=== PATIENT | female | born 1970 | race Caucasian/White ===

== ENCOUNTER → 2020-08-10 14:33 | Outpatient (CLI) | payer BC, SELFPAY ==
--- NOTE | ~2020-08-10 | CT_ITS ---
EXAMINATION: CT abdomen pelvis wo con DATE: 08/10/2020 14:56 INDICATION: Incisional hernia without obstruction or gangrene. TECHNIQUE: Computed tomography (CT) of the abdomen and pelvis was performed without intravenous contr ast. Automated exposure control and iterative reconstruction technique were employed. The dose-length product was 304.28 mGy-cm. COMPARISON: None. FINDINGS: The visualized portions of the lung bases are clear without pneumonia or pleural effusion. The heart size is normal. No pericardial effusion. There are surgical changes in the stomach. There i s a small sliding hiatal hernia. There are cysts in the liver measuring up to 1.7 cm. The gallbladder , spleen, pancreas, adrenal glands, and kidneys are normal. There are no dilated loops of bowel. Ther e is a large volume of stool in colon. The appendix is normal. There are no pathologically enlarged l ymph nodes. There is no free intraperitoneal fluid. There is a small umbilical hernia containing fat. There is severe lower lumbar spondylosis. IMPRESSION: 1. Small sliding hiatal hernia. 2. Small umbilical hernia containing fat. Reviewed, dictated and finalized at location A.
== END ==
PROVIDERS: PCP Internal Medicine; Visit Provider Surgery
DX: K43.2 Incisional hernia without obstruction or gangrene (principal); K44.9 Diaphragmatic hernia without obstruction or gangrene; K42.9 Umbilical hernia without obstruction or gangrene
CPT/HCPCS: 74176

== ENCOUNTER → 2020-09-05 01:52 | Outpatient (CLI) | payer BC, SELFPAY ==
[2020-09-06 14:52] LABS: SARS-CoV-2 RNA PCR Negative
== END ==
PROVIDERS: PCP Internal Medicine; Visit Provider Surgery
DX: Z01.812 Encounter for preprocedural laboratory examination (principal); Z20.822 Contact with and (suspected) exposure to COVID-19
CPT/HCPCS: C9803; U0003; U0005

== ENCOUNTER 2020-09-09 00:42 | Day surgery (SDC) | payer BC, SELFPAY ==
[2020-08-31 16:38] VITALS: BMI 20.9
--- NOTE | 2020-09-09 07:05 | WPDHPUPDATE1 ---
History and Physical Update Update Date/Time: 09/09/20 07:05 History and Physical has been reviewed, including an updated exam of the patient. There are NO changes in the patient's condition. Risks, benefits, and alternatives have been discussed and questions answered. Patient agrees to proceed with procedure.
[2020-09-09] MEDS: LACTATED RINGERS 1,000 ML 30 ML IV CONT ×2 (08:17→10:33)
[2020-09-09] MEDS: ACETAMINOPHEN 500 MG TABLET 1000 MG PO (08:17)
[2020-09-09] MEDS: KETOROLAC 15 MG/ML VIAL (*BKC) IV PUSH (08:17)
[2020-09-09 08:24] VITALS: BMI 20.9
[2020-09-09 08:25] VITALS: BP 113/80; PULSE 70; RESP 16; TEMP 36.7; O2SAT 100
--- NOTE | 2020-09-09 08:32 | SUR.PREOP ---
PT STATES HE HAS NOT HAD A MENSTRUAL CYCLE SINCE 2012
[2020-09-09] MEDS: ceFAZolin 2 GM/D5W 50 ML 2 GM/50 ML BAG IVPB (09:39)
[2020-09-09] MEDS: BUPIVACAINE HCL 0.5% PF 30 ML VIAL 10 ML INFILTRATE (09:57)
[2020-09-09 10:33] VITALS: BP 86/51; PULSE 61; RESP 15; O2SAT 99
--- NOTE | 2020-09-09 10:45 | P.OP_ITS ---
Procedure Note - Detailed Date of procedure: 09/09/20 Pre-op diagnosis: umbilical hernia Umbilical hernia Post-op diagnosis: same Procedure performed: Umbilical hernia repair with 4.4 cm Parietex underlay mesh Description of procedure: Patient was taken to the operating room and IV sedation was administered. Prep and drape was carried out. The proposed incision along the lower margin of the umbilicus was marked on the skin. Local anesthetic was infiltrated into the skin and the deeper subcutaneous tissues. Incision was made and dissection was carried down through the skin and to the hernia sac. The sac was then dissected free from the umbilical skin and the surrounding subcutaneous tissues. It was dissected down to its neck. Additional local anesthetic was infiltrated into the neck and the fascia s urrounding the neck of the hernia sac. The sac was then amputated at its neck. There was an Ethibond suture in the fascia from 1 of her previous repairs which was removed prior to removing the hernia sac. The subcutaneous was undermined around the hernia defect. Additional local was infiltrated around the fascia. I placed a finger inside the hernia defect and checked for any abdominal wall ad hesions in the area. None were found. I could not feel any of her previous mesh either. No other hernias were noted. A 4.6 cm Parietex three affiliated was chosen. It was folded and placed in the defect. Once it symmetrically covered the defect, I placed cranial and caudal transfascial sutures of 0 Ethibond. These sutures were placed in such a fashion that, when tied, they would advance the edges of the hernia defect towards 1 another. These sutures were tied and had the desired effect. I then closed the hernia defect with [id number] mattress sutures of 0 Ethibond. The repair looked quite satisfactory. I then infiltrated additional local all around the areas of the repair. The umbilical skin was tacked to the fascia with 3 0 Vicryl suture. The subcutaneous was closed with 3 0 Vicryl. Subcuticular interrupted 4 O Vicryl skin stitches were placed. The skin was then closed with running 4 0 Monocryl subcuticular suture. Wound was dressed with Exofin surgical adhesive. The patient was awakened and taken to recovery in good condition. Counts were correct x2. Implants: 4.6 cm Parietex hernia mesh Anesthesia: MAC and local (0.5% Marcaine with Exparel) Surgeon: Milan Han MD Elevator Operator Freight: Radha COLON Estimated blood loss (mL): 5 Drains: No Packing: No Pathology: none sent Complications: None Condition: stable Disposition: same day Findings: 12 millimeter hernia defect
[2020-09-09] MEDS: SCOPOLAMINE 1.5 MG PATCH TRANSDERM (10:46)
[2020-09-09 11:00] VITALS: BP 100/60; PULSE 59; RESP 16; O2SAT 100
[2020-09-09 11:25] VITALS: BP 93/63; PULSE 57; RESP 16
[2020-09-09 11:40] VITALS: BP 103/63; PULSE 55; RESP 16
== END 2020-09-09 11:52 | disposition home or self-care (01) ==
PROVIDERS: PCP Internal Medicine; Visit Provider Surgery
PROC: (CPT 49585; principal; 2020-09-09 09:30)
DX: K42.9 Umbilical hernia without obstruction or gangrene (principal)
CPT/HCPCS: 49585; A9270; C1781; C9290; J0690; J1885; J2250; J2704; J3010; J7120

== ENCOUNTER 2021-04-01 15:31 | Outpatient (CLI) | payer OTHER, SELFPAY ==
[2021-04-01 16:06] LABS: Hemoglobin 12.3 g/dL (12.0-15.0); Mean Corpuscular HGB Conc 32.4 g/dl (32-36); Mean Corpuscular Hemoglobin 31.7 pg (26-34); Mean Corpuscular Volume 97.9 fl (80-100); Mean Platelet Volume 11.2 fl (7.4-10.4); Platelet Count Result 210 k/mm3 (150-375); Red Blood Count 3.88 M/mm3 (4.2-5.4); Red Cell Distribution Width 13.2 % (11.5-14.5); White Blood Count 4.4 K/mm3 (4.5-10.0)
[2021-04-01 16:16] LABS: Albumin Level 4.7 g/dL (3.5-5.1); Anion Gap 9 mmol/L (8-16); Blood Urea Nitrogen 24 mg/dL (7-17); Calcium 9.2 mg/dL (8.4-10.2); Carbon Dioxide 28 mmol/L (22-30); Chloride 96 mmol/L (98-107); Estimated Glomerular Filt Rate > 60; Glucose 90 mg/dL (65-110); Sodium 133 mmol/L (137-145)
[2021-04-01 16:23] LABS: Prealbumin 21.9 mg/dL (17.6-36.0)
[2021-04-01 17:09] LABS: Iron 108 ug/dL (37-170)
== END 2021-04-01 15:32 | disposition home or self-care (01) ==
LOC: ANHLAB 15:33
PROVIDERS: PCP Internal Medicine; Visit Provider Surgery Plastic and Reconstructive Surgery
DX: Z01.818 Encounter for other preprocedural examination (principal)
CPT/HCPCS: 36415; 80048; 82040; 83540; 84134; 85027

== ENCOUNTER 2021-04-16 00:10 | Day surgery (SDC) | payer OTHER, SELFPAY ==
[2021-04-09 11:15] VITALS: BMI 21.2
--- NOTE | 2021-04-09 11:40 | PC.NURSE ---
Report to the Outpatient Waiting Room, entrance under the green pavilion located off [facility], at time 0600 on date 04/16/21. OR Time: 0730. - You and your visitor will be asked a series of questions to screen for COVID 19 for your protection. - A mask is required within the hospital. - Only one visitor is allowed at this time. Patient visitors will be guided where to wait when not with patient. Preoperative COVID Testing Requirements: No COVID Test needed if: (proof is required; if not received patient will have Rapid Test prior to entry) - Patient has received COVID Vaccine at least 14 days prior to procedure date or - Patient has positive COVID test result within last 90 days of surgery date. COVID Test needed if above criteria is not met If not COVID vaccinated a COVID test must be conducted within 72 hours of surgery and patient is asked to isolate self from time of testing until procedure. You will go to the [facility] for your COVID testing. The [facility] is located at the corner of [address] [facility]. You will only be called if COVID results are positive and your surgeon may reschedule your elective surgery date. Patients may have clear liquids (water, carbonated beverages, clear teas, apple juice) until 3 hours prior to surgery with a maximum of 20 ounces. - No food from midnight until time of surgery - Infants may have breast milk until 4 hours before surgery, infant formula 6 hours prior to surgery. - Children will be allowed to drink immediately following surgery. If applicable, please bring a bottle or sippy cup to assist with drinking. Juice, water, soda, and popsicles are readily available. For infants on formula, please bring formula the day of surgery. Pacifiers are allowed. Take the following medications with a SIP of water the morning of surgery: NONE Medications to discontinue per physician: N/A Date to take last dose: N/A Please no make-up, nail english, hairspray, perfume, deodorant, or body powder the day of surgery. No jewelry (including any body piercings) or valuables the day of surgery, leave them at home. Please take a shower or bath the night before, or the morning of, surgery with an antibacterial soap. Wear comfortable, loose fitting clothing. Children are encouraged to wear pajamas. - Jewelry must be removed prior to entering the operating room. Rings and piercings that are not removed may be cut off. - The hospital will not accept responsibility for valuables. - Please leave all valuables, including medications, at home the day of surgery. If you are going home after surgery, a licensed taxi driver supervisor must drive you home. - NO public transportation without another adult. - We recommend that an adult stay with you for 24 hours following discharge. - We also recommend that you do not drive, make important decision, drink alcoholic beverages, or take any drugs that were not prescribed by your health care provider for at least 24 hours after your discharge time. For Pediatric surgeries, we recommend two adults accompany the child home (only one inside the building at this time). Follow any additional instructions given to you from your surgeon. Telephone instructions given to TRAE VÁSQUEZ and asked if any additional questions and then verbalized understanding. Patient advised to call surgeon office or pre surgery nurse liaison [phone] if any additional questions.
[2021-04-16] VITALS (10 sets, daily range): BP systolic 93–135; BP diastolic 60–81; PULSE 51–69; RESP 12–18; TEMP 36.2–36.6; O2SAT 92–100
[2021-04-16] MEDS: LACTATED RINGERS 1,000 ML 30 ML IV CONT ×2 (06:35→09:29)
--- NOTE | 2021-04-16 06:37 | WPDANESEPPF ---
Anes - Initial Pre Proc Eval Procedure: Operation Date: 04/16/21 07:30 Proposed Procedures p Bilateral Medial Thigh Lift - Parveen Brizuela MD Date/Time: 04/16/21 06:37 Surgeon: Parveen Brizuela MD Pre Op Diagnosis: skin laxity Patient Data Age: 50 Gender: F Height: 1.57 m Weight: 52.62 kg Allergies Allergy/AdvReac Type Severity Reaction Status Date / Time No Known Allergies Allergy Mild Verified 04/09/21 11:13 Home Medications Medication Instructions Recorded Confirmed Type docusate sodium 100 mg capsule 100 mg PO DAILY #14 cap 04/01/21 04/09/21 Rx ondansetron HCl 4 mg tablet 4 mg PO Q8H #21 tablet 04/01/21 04/09/21 Rx oxycodone-acetaminophen 5 mg-325 1 tablet PO Q6H PRN #30 tablet 04/05/21 04/09/21 Rx mg tablet Laboratory Tests 04/16/21 06:06 Cotinine Pending Patient hx anesthesia problems: none Family hx anesthesia problems: none Results Review: All pre-operative results and documents have been reviewed as part of the pre-operative evaluation. [facility] Surgical History Surgical History History of History of hernia repair History of removal of ovarian cyst left side History of weight loss surgery Social History Social History Smoking status: Never smoker Alcohol intake: never Substance use: never Substance use type: does not use Living arrangements: with family Gender identity (if verbalized by the patient): Female Sexual Orientation (if Verbalized by the Patient): Straight or Heterosexual Spiritual care concerns: No Anes - Eval Final PreProcedure Day of Procedure 04/16/21 06:37 Patient weight: normal Heart: regular rate and rhythm Lungs: clear to auscultation Airway: Mallampati scale class II Neurological: alert and oriented Last oral intake: >/= 8 hours ASA classification: I Emergent: no Anesthetic plan: proceed Anesthesia type and monitoring: general ETT and standard monitoring Results Review: All pre-operative results and documents have been reviewed as part of the pre-operative evaluation. Informed Consent: The patient's anesthetic plan and its attendant risks and benefits were discussed with the patient/family/POA. Questions were solicited and answers provided to the satisfaction of the patient/family/POA.
[2021-04-16 06:39] LABS: Urine Cotinine NEGATIVE
--- NOTE | 2021-04-16 06:58 | WPDHPUPDATE1 ---
History and Physical Update Update Date/Time: 04/16/21 06:58 History and Physical has been reviewed, including an updated exam of the patient. There are NO changes in the patient's condition. Risks, benefits, and alternatives have been discussed and questions answered. Patient agrees to proceed with procedure.
[2021-04-16] MEDS: SCOPOLAMINE 1.5 MG PATCH TRANSDERM (07:12)
[2021-04-16] MEDS: LACTATED RINGERS IRRIG 1,000 ML, LIDOCAINE HCL 1% LOCAL INJ 50 ML, EPINEPHrine HCL INJ ... INFILTRATE (07:22)
[2021-04-16] MEDS: TRANEXAMIC ACID 1,000MG/ISO100 1,000 MG/100 ML BAG 200 MG IVPB (07:22)
[2021-04-16] MEDS: ceFAZolin 2 GM/D5W 50 ML 2 GM/50 ML BAG IVPB (07:30)
--- NOTE | 2021-04-16 07:30 | W.PM.PROC2 ---
Procedure Note - Detailed Date of Procedure 04/16/21 Pre-op Diagnosis skin laxity Post-op Diagnosis same Procedure Performed Medial thigh lift Surgeon Parveen Brizuela MD Anesthesia general Description of Procedure Risks, benefits, alternatives were discussed with her and her family preoperatively. I want her to be very realistic about the risks involved as well as expectations. Made sure answered all of her questions to her satisfaction. Consent obtained. Patient marked in the preoperative holding area with her verification. She was taken to the operating room placed supine on operating room table. Anesthesia provided by anesthesiology and prepped and draped in a standard sterile fashion. Surgical time-out was taken. I verified my markings. Stab incisions were made and I tumesced with a tumescent solution. Once adequate time for hemostasis a 4 mm basket cannula was used to complete suction lipectomy of the medial thigh for the planned resection. I completely deep fat had the area to be resected. Using a strip avulsion technique in a cut as you go fashion from proximal to distal I removed the intervening tissue. Closed with 0 Stratafix followed by 3-0 Stratafix in a running subcuticular 4-0 Monocryl and tissue glue followed by steri strips and JOSE wrap. She was woken and taken to the PACU without difficulty. All instrument sponge counts were correct at the end of the case. Estimated Blood Loss 30 Drains No Packing No Pathology none sent Complications No immediate complications Condition stable Disposition PACU
[2021-04-16] MEDS: fentaNYL CITRATE INJ (*CRX) 100 MCG/2 ML VIAL 25 MCG IV PUSH (10:18)
[2021-04-16] MEDS: oxyCODONE HCL (*CRX) 5 MG TAB IR PO (10:58)
[2021-04-16] MEDS: ONDANSETRON INJ 4 MG/2 ML VIAL IV PUSH (10:58)
[2021-04-22 09:23] LABS: Vitamin B1 14 nmol/L (8-30)
== END 2021-04-16 12:07 | disposition home or self-care (01) ==
PROVIDERS: PCP Internal Medicine; Visit Provider Surgery Plastic and Reconstructive Surgery
PROC: (CPT 15832; principal; 2021-04-16 07:30)
DX: Z41.1 Encounter for cosmetic surgery (principal); L57.4 Cutis laxa senilis; Z98.84 Bariatric surgery status
CPT/HCPCS: 15833; 15879; 80307; 84425; A9270; J0171; J0690; J2250; J2270; J2405; J2704; J3010; J7120

== ENCOUNTER → 2023-09-20 11:04 | Outpatient (CLI) | payer BC, SELFPAY ==
--- NOTE | ~2023-09-20 | XR_ITS ---
XR chest 2V DATE: 09/20/2023 11:23 INDICATION: Chronic cough for 2 weeks. Left anterior chest pain. TECHNIQUE: 2 views COMPARISON: None FINDINGS: Normal heart size. No hilar or mediastinal enlargement. No pulmonary infiltrate or consolid ation, pleural effusion or pulmonary vascular congestion or pneumothorax. Mild thoracolumbar levoscoliosis. IMPRESSION: No active cardiopulmonary disease Reviewed, dictated and finalized at location B.
== END ==
LOC: EXPBRAD 11:09
DX: R05.3 Chronic cough (principal); R07.89 Other chest pain
CPT/HCPCS: 71046

== ENCOUNTER 2024-02-16 17:45 | Emergency (ER) | payer BC, SELFPAY ==
[2024-02-16 17:50] VITALS: BP 131/89; PULSE 80; RESP 16; TEMP 36.6; O2SAT 100
--- NOTE | 2024-02-16 18:08 | ED.URI ---
HPI - URI/Sore Throat General Chief Complaint: Upper Respiratory Infection Stated Complaint: Congestion Time Seen by Provider: 02/16/24 18:08 Source: patient Mode of arrival: ambulatory Limitations: no limitations History of Present Illness HPI Narrative: 53-year-old female presented for complaint of nasal congestion and sinus pressure over the past month. Endorses thick yellow nasal discharge. Cough is worse when lying down. She has used Zyrtec D but notices causing a dry mouth. She denies shortness of breath, wheezing, nausea, vomiting, diarrhea, fevers or chills. Related Data Allergies Allergy/AdvReac Type Severity Reaction Status Date / Time No Known Allergies Allergy Mild Verified 02/16/24 18:05 Review of Systems Review of Systems: CONSTITUTIONAL: Denies body aches, fever, chills, or sweats. EYES: Denies visual changes, redness, or discharge. ENT: reports rhinorrhea, congestion, denies sore throat, or otalgia. CARDIOVASCULAR: Denies chest pain, palpitations, or edema. RESPIRATORY: Denies dyspnea. NEUROLOGIC: Denies headache All systems reviewed & are unremarkable except as noted in HPI and below PMFSH Surgical History Surgical History History of History of hernia repair History of removal of ovarian cyst left side History of weight loss surgery Social History Social History Smoking status: Never smoker Alcohol intake: never Substance use: never Substance use type: does not use Living arrangements: with family Gender identity (if verbalized by the patient): Female Sexual Orientation (if Verbalized by the Patient): Straight or Heterosexual Spiritual care concerns: No Comments At time of signature, I have reviewed and agree with nursing past medical, surgical, social and family history unless otherwise noted. Please see nursing chart for further information. There is no relevant family history pertinent to the presenting complaint Exam Narrative: GENERAL: Well-appearing, well-nourished, and in no acute distress. HEAD: Normocephalic, atraumatic. EYES: EOMI. No redness or drainage. Conjunctivae normal. ENT: Mucous membranes pink and moist. No rhinorrhea. TMs normal bilaterally. Throat normal. Uvula midline. NECK: Normal AROM. Supple. No lymphadenopathy. CHEST: No respiratory distress. Clear to auscultation. HEART: Regular rate and rhythm. No murmur appreciated. Normal peripheral pulses. ABDOMEN: Soft, nontender, nondistended, normal active bowel sounds. MUSCULOSKELETAL: No bony tenderness. EXTREMITIES: Normal range of motion. No edema. SKIN: Warm, dry, no rash. Capillary refill normal. Normal skin turgor. NEURO: No focal deficits. Alert and oriented x3. Gait steady. PSYCH: Normal affect. No signs of depression or anxiety. Course Course Emergency Course: Patient is aware of diagnosis, understands and agrees to treatment plan. Anticipatory guidance given. Patient agrees to follow-up as directed and is aware of reasons to seek care at the emergency department. Portions of this record may have been created with voice recognition software Level of Care: Express Care Visit Vital Signs Vital signs: Vital Signs Temperature 97.9 F 02/16/24 17:50 Pulse Rate 80 02/16/24 17:50 Respiratory Rate 16 02/16/24 17:50 Blood Pressure 131/89 02/16/24 17:50 Pulse Oximetry 100 02/16/24 17:50 Oxygen Delivery Room Air 02/16/24 17:50 Temperature 97.9 F 02/16/24 17:50 Pulse Rate 80 02/16/24 17:50 Respiratory Rate 16 02/16/24 17:50 Blood Pressure 131/89 02/16/24 17:50 Pulse Oximetry 100 02/16/24 17:50 Oxygen Delivery Room Air 02/16/24 17:50 MDM - URI/Sore Throat MDM Narrative Medical decision making narrative: Discussed physical exam findings consistent with sinusitis. Advised supportive measures and signs/sym
== END 2024-02-16 18:24 | disposition home or self-care (01) ==
PROVIDERS: Emergency Provider Nurse Practitioner Family; PCP Internal Medicine
DX: J32.9 Chronic sinusitis, unspecified (principal)
CPT/HCPCS: 99213; G0463

== ENCOUNTER 2024-09-27 09:33 | Outpatient (CLI) | payer OTHER, SELFPAY ==
--- OUTSIDE RECORDS SUMMARY | 2024-09-27 09:44 | XMS_ITS | Clinical Summary ---
Author Organization [facility] Address [address] [place] [address] Care Team Providers Care Community Center Worker Name Role Phone Antoni Arenas MD Primary Care Provider [phone] Source Comments [facility] and Associated Physician Practices is amultiple site organization consisting of ambulatory clinics and hospital sitesin [place], [place], [place] and [place]. This disclosure is being madepursuant to the Care Everywhere program and may not contain all information available regarding this patient. Last updated 18.[facility] [employer] Allergies Active Allergy Reactions Criticality Noted Date Comments Adhesive Sensitivity 04/22/2011 Skin reddens/irritation Medications * Be aware that medications may not be up to date on this document. Alwaysverify current medications with the patient. multivitamin daily (THERAGRAN) tablet Take 1 Tab by mouth 2 times daily. Active Calcium Citrate-Vitamin D (CALCIUM CITRATE + D PO) Take 500 mg by mouth 2 times daily. Active Thiamine HCl 100 MG TABS Take 100 mg by mouth once daily. Active vitamin B-12 n (B-12) 500 MCG tablet Take 500 mcg by mouth every 2 days. Active vitamin D, cholecalciferol, 1000 UNIT tablet Take 1 Tab by mouth once daily. Active Spironolactone (ALDACTONE PO) Take by mouth. Active DOXYCYCLINE, ROSACEA, PO Take by mouth. Active Active Problems No known active problems Social History Tobacco Use Types Packs/Day Years Used Date Smoking Tobacco: Never Smokeless Tobacco: Never Alcohol Use Standard Drinks/Week Comments Yes 0 (1 standard drink = 0.6 oz pur e alcohol) social/rare Comments No Sex and Gender Information Value Date Recorded Sex Assigned at Not on file Legal Sex Female 12:17 PM COPY CLERK Gender Identity Not on file Sexual Orientation Not on file Last Filed Vital Signs Vital Sign Reading Time Taken Comments Blood Pressure 110/77 05/02/2014 9:35 AM COPY CLERK Pulse 84 05/02/2014 9:35 AM COPY CLERK Temperature 36.3 C (97.3 F) 11/08/2011 9:43 AM CDT Respiratory Rate 16 11/08/2011 9:43 AM CDT Oxygen Saturation 98% 05/02/2014 9:35 AM COPY CLERK Inhaled Oxygen Concentration - - Weight 67.1 kg (148 lb) 05/02/2014 9:35 AM COPY CLERK Height 157.5 cm (5' 2) 05/02/2014 9:35 AM COPY CLERK Body Mass Index 27.07 05/02/2014 9:35 AM COPY CLERK Plan of Treatment Health Maintenance Due Date Last Done Comments COLOGUARD (AGES 45-75) - COL ON CA SCREENING 1970 COLON MONITORING 1970 COLONOSCOPY - COLON CA SCREENING 1970 CT COLONOGRAPHY - COLON CA SCREENING 1970 Colorectal Cancer Screening 1970 FIT - COLON CA SCREENING 1970 FLEX SIG - COLON CA SCREENING 1970 LIPID TESTING 1970 MAMMOGRAM 1970 HIV SCREENING 1985 HEPATITIS C SCREENING 04/15/1988 DTAP/TDAP/TD VACCINES (1 - Tdap) 1989 HEPATITIS B VACCINE (1 of 3 - 19+ 3-dose series) 1989 PNEUMOCOCCAL VACCINE 50+ (1 of 1 - PCV) 2020 ZOSTER VACCINE (1 of 2) 2020 COVID-19 VACCINE ( - 2023-2 5 season) 2023 DEPRESSION SCREENING 05/01/2024 INFLUENZA VACCINE (Season Ended) 2024 HIB VACCINE Aged Out No longer eligi ble based on patient's age to complete this topic HPV VACCINE Aged Out No longer eligi ble based on patient's age to complete this topic MENINGOCOCCAL (Group B) VACC INE SHARED DECISION-MAKING Aged Out No longer eligibl e based on patient's age to complete this topic MENINGOCOCCAL GROUPS A/C/Y/W VACCINE Aged Out No longer eligible b ased on patient's age to complete this topic Insurance [facility] Advance Directives * FULL RESUSCITATION (Latest Code Status on File) Date Activated Date Inactivated Comments 05/11/2011 12:11 PM 05/13/2011 1:15 AM Care Teams Community Center Worker Relationship Specialty Start Date End Date Antoni Arenas MD [address] [place] [phone] PCP - General 01/28/11
--- OUTSIDE RECORDS SUMMARY | 2024-09-27 09:44 | XMS_ITS | Encounter Summary ---
Author Organization [facility] Health Address [address] [place] [address] Care Team Providers Care Giant Tire Repairer Name Role Phone Antoni Arenas MD Primary Care Provider [phone] Encounter Details Date Type Department Care Team (Late st Contact Info) Description 05/10/2011 [facility] Outpatient Visit EXTERNAL NON-[facility] DEPT Leonard Horne MD [address] [place], [place] [id number] Social History Tobacco Use Types Packs/Day Years Used Date Smoking Tobacco: Never Smokeless Tobacco: Never Alcohol Use Standard Drinks/Week Comments Yes 0 (1 standard drink = 0.6 oz pur e alcohol) social/rare Comments Unknown Sex and Gender Information Value Date Recorded Sex Assigned at Not on file Legal Sex Female 12:17 PM FARE COLLECTOR Gender Identity Not on file Sexual Orientation Not on file documented as of this encounter Plan of Treatment Not on file documented as of this encounter Visit Diagnoses Not on filedocumented in this encounter Care Teams Giant Tire Repairer Relationship Specialty Start Date End Date Antoni Arenas MD [address] [place] [phone] PCP - General 01/28/11 documented as of this encounter
--- OUTSIDE RECORDS SUMMARY | 2024-09-27 09:44 | XMS_ITS | Encounter Summary ---
Author Organization [facility] Health Address [address] [place] [address] Care Team Providers Care Pipe Changer Name Role Phone Antoni Arenas MD Primary Care Provider [phone] Encounter Details Date Type Department Care Team (Late st Contact Info) Description 05/06/2011 [facility] Outpatient Visit EXTERNAL NON-[facility] DEPT Leonard Horne MD [address] [place], [place] [id number] Social History Tobacco Use Types Packs/Day Years Used Date Smoking Tobacco: Never Smokeless Tobacco: Never Alcohol Use Standard Drinks/Week Comments Yes 0 (1 standard drink = 0.6 oz pur e alcohol) social/rare Comments Unknown Sex and Gender Information Value Date Recorded Sex Assigned at Not on file Legal Sex Female 12:17 PM DIRECTOR OF MARKETING AND PROMOTIONS Gender Identity Not on file Sexual Orientation Not on file documented as of this encounter Plan of Treatment Not on file documented as of this encounter Visit Diagnoses Not on filedocumented in this encounter Care Teams Pipe Changer Relationship Specialty Start Date End Date Antoni Arenas MD [address] [place] [phone] PCP - General 01/28/11 documented as of this encounter
[2024-09-27 10:16] LABS: Iron 110 ug/dL (37-170)
[2024-09-27 10:17] LABS: Alanine Aminotransferase 19 U/L (6-35); Albumin Level 4.5 g/dL (3.5-5.1); Alkaline Phosphatase 68 U/L (38-126); Anion Gap 9 mmol/L (4-12); Aspartate Amino Transferase 28 U/L (14-36); Bilirubin,Total 0.8 mg/dL (0.2-1.3); Blood Urea Nitrogen 20 mg/dL (7-17); Calcium 9.4 mg/dL (8.4-10.2); Carbon Dioxide 29 mmol/L (22-30); Chloride 102 mmol/L (98-107); Estimated Glomerular Filt Rate > 60; Glucose 103 mg/dL (65-110); Potassium 4.4 mmol/L (3.4-5.0); Sodium 140 mmol/L (137-145)
[2024-09-27 10:24] LABS: Prealbumin 20.8 mg/dL (17.6-36.0)
[2024-10-02 10:04] LABS: Vitamin B1. 18 nmol/L (8-30)
== END 2024-09-27 09:34 | disposition home or self-care (01) ==
PROVIDERS: PCP Internal Medicine; Visit Provider Surgery Plastic and Reconstructive Surgery
DX: R63.4 Abnormal weight loss (principal)
CPT/HCPCS: 36415; 80053; 83540; 84134; 84425

== ENCOUNTER 2024-10-10 08:14 | Outpatient (CLI) | payer OTHER, SELFPAY ==
--- NOTE | 2024-10-10 08:25 | ECG_ITS ---
Test Date: 2024-10-10 08:42:51 Measurements Intervals [place] Rate: 70 P: 34 RI: 125 QRS: 40 QRSD: 74 T: 34 QT: 361 QTc: 390 Interpretive Statements SINUS RHYTHM BASELINE ARTIFACT- I, II, III ,AVR, AVL NORMAL ECG No previous ECG available for comparison Electronically Signed On 10-10-2024 11:20:30 CDT by Hollis Sorto D.O.
--- OUTSIDE RECORDS SUMMARY | 2024-10-10 08:29 | XMS_ITS | Encounter Summary ---
Author Organization [facility] Health Address [address] [place] [address] Care Team Providers Care Mixer And Blender Name Role Phone Antoni Arenas MD Primary Care Provider [phone] Encounter Details Date Type Department Care Team (Late st Contact Info) Description 05/06/2011 [facility] Outpatient Visit EXTERNAL NON-[facility] DEPT Leonard Horne MD [address] [place], [place] [id number] Social History Tobacco Use Types Packs/Day Years Used Date Smoking Tobacco: Never Smokeless Tobacco: Never Alcohol Use Standard Drinks/Week Comments Yes 0 (1 standard drink = 0.6 oz pur e alcohol) social/rare Comments Unknown Sex and Gender Information Value Date Recorded Sex Assigned at Not on file 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
--- OUTSIDE RECORDS SUMMARY | 2024-10-10 08:29 | XMS_ITS | Clinical Summary ---
Author Organization [facility] Address [address] [place] [address] Care Team Providers Care Events Solutions Consultant Name Role Phone Antoni Arenas MD Primary Care Provider [phone] Source Comments [facility] and Associated Physician Practices is amultiple site organization consisting of ambulatory clinics and hospital sitesin [place], [place], [place] and [place]. This disclosure is being madepursuant to the Care Everywhere program and may not contain all information available regarding this patient. Last updated 18.[facility] [employer] Allergies Active Allergy Reactions Criticality Noted Date [...] on file Legal Sex Female 12:17 PM CARE ASSOCIATE Gender Identity Not on file Sexual Orientation Not on file Last Filed Vital Signs Vital Sign Reading Time Taken Comments Blood Pressure 110/77 05/02/2014 9:35 AM CARE ASSOCIATE Pulse 84 05/02/2014 9:35 AM CARE ASSOCIATE Temperature 36.3 C (97.3 F) 11/08/2011 9:43 AM CDT Respiratory Rate 16 11/08/2011 9:43 AM CDT Oxygen Saturation 98% 05/02/2014 9:35 AM CARE ASSOCIATE Inhaled Oxygen Concentration - - Weight 67.1 kg (148 lb) 05/02/2014 9:35 AM CARE ASSOCIATE Height 157.5 cm (5' 2) 05/02/2014 9:35 AM CARE ASSOCIATE Body Mass Index 27.07 05/02/2014 9:35 AM CARE ASSOCIATE Plan of Treatment Health Maintenance Due Date [...] this topic Insurance [facility] Address: [facility] [id number] [place] [phone] Advance Directives * FULL RESUSCITATION (Latest Code Status on File) Date Activated Date Inactivated Comments 05/11/2011 12:11 PM 05/13/2011 1:15 AM Care Teams Events Solutions Consultant Relationship Specialty Start Date End Date Antoni Arenas MD [address] [place] [phone] PCP - General 01/28/11
--- OUTSIDE RECORDS SUMMARY | 2024-10-10 08:29 | XMS_ITS | Encounter Summary ---
Author Organization [facility] Health Address [address] [facility] [place] [address] Care Team Providers Care Mineral Engineer Name Role Phone Antoni Arenas MD Primary Care Provider [phone] Encounter Details Date Type Department Care Team (Late st Contact Info) Description 05/10/2011 [facility] Outpatient Visit EXTERNAL NON-[facility] DEPT Leonard Horne MD [address] [place], [place] [id number] Social History Tobacco Use Types Packs/Day Years Used Date Smoking Tobacco: Never Smokeless Tobacco: Never Alcohol Use Standard Drinks/Week Comments Yes 0 (1 standard drink = 0.6 oz pur e alcohol) social/rare Comments Unknown Sex and Gender Information Value Date Recorded Sex Assigned at Not on file 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
[2024-10-10 08:50] LABS: Hemoglobin 11.3 g/dL (12.0-15.0)
== END 2024-10-10 08:15 | disposition home or self-care (01) ==
PROVIDERS: Anesthesiology; PCP Internal Medicine; Visit Provider Surgery Plastic and Reconstructive Surgery
DX: Z01.818 Encounter for other preprocedural examination (principal); L57.4 Cutis laxa senilis
CPT/HCPCS: 36415; 85014; 85018; 93005

== ENCOUNTER 2024-10-11 00:58 | Day surgery (SDC) | payer OTHER, SELFPAY ==
--- NOTE | 2024-10-03 11:10 | PC.NURSE ---
Report to the Outpatient Waiting Room, entrance under the green pavilion located off [facility], at time __6 am on date __10/11/24 . Planned Procedure Time: ___7:30 am .? Time changes happen often and if your time is changed the preop area will call you the afternoon before. - You and your visitor will be asked to self-screen and do not enter if you have any COVID symptoms. Please call surgeon if you need to reschedule. - A mask is optional within the hospital at this time. Patients may have clear liquids (water, carbonated beverages, clear teas, apple juice) until 3 hours prior to surgery ( 4:30 am) with a maximum of 20 ounces. - No food from midnight until time of surgery and no smoking, or chewing tobacco (or any form of nicotine). No chewing gum, candy or mints. Take only the following medications with a SIP of water on the morning of surgery: NONE DO NOT STOP ANY OF YOUR OTHER PRESCRIPTION MEDICATIONS PRIOR TO SURGERY EXCEPT THE FOLLOWING Hold all vitamins and supplements for 3 days per anesthesiologist. Medications to discontinue per physician NONE Please no make-up, nail citizen of the [place], hairspray, perfume, deodorant, or body powder the day of surgery.? No jewelry (including any body piercings) or valuables the day of surgery, leave them at home.? Please take a shower or bath the night before, or the morning of, surgery with an antibacterial soap.? Wear comfortable, loose fitting clothing.? Children are encouraged to wear pajamas. - Jewelry must be removed prior to entering the operating room.? Rings and piercings that are not removed may be cut off. - The hospital will not accept responsibility for valuables.? - Please leave all valuables, including medications, at home the day of surgery. If you are going home after surgery, a licensed parts delivery driver must drive you home.? - NO public transportation without another adult if you receive anesthesia. - We recommend that an adult stay with you for 24 hours following discharge. - We also recommend that you do not drive, make important decision, drink alcoholic beverages, or take any drugs that were not prescribed by your health care provider for at least 24 hours after your discharge time. Follow any additional instructions given to you from your surgeon. Telephone instructions given to _PATIENT and asked if any additional questions and then verbalized understanding. Patient advised to call surgeon office or pre surgery nurse liaison [phone] if any additional questions.
[2024-10-03 11:28] VITALS: BMI 25.6
[2024-10-11] VITALS (13 sets, daily range): BP systolic 108–137; BP diastolic 48–64; PULSE 72–117; RESP 14–18; TEMP 35.7–37; O2SAT 100
--- OUTSIDE RECORDS SUMMARY | 2024-10-11 01:00 | XMS_ITS | Encounter Summary ---
Author Organization [facility] Health Address [address] [facility] [place] [address] Care Team Providers Care Motor Setter Name Role Phone Antoni Arenas MD Primary Care Provider [phone] Encounter Details Date Type Department Care Team (Late st Contact Info) Description 05/06/2011 [facility] Outpatient Visit EXTERNAL NON-[facility] DEPT Leonard Horne MD [address] [place], [place] [id number] Social History Tobacco Use Types Packs/Day Years Used Date Smoking Tobacco: Never Smokeless Tobacco: Never Alcohol Use Standard Drinks/Week Comments Yes 0 (1 standard drink = 0.6 oz pur e alcohol) social/rare Comments Unknown Sex and Gender Information Value Date Recorded Sex Assigned at Not on file Legal Sex Female 12:17 PM CARD FIXER Gender Identity Not on file Sexual Orientation Not on file documented as of this encounter Plan of Treatment Not on file documented as of this encounter Visit Diagnoses Not on filedocumented in this encounter Care Teams Motor Setter Relationship Specialty Start Date End Date Antoni Arenas MD [address] [place] [phone] PCP - General 01/28/11 documented as of this encounter
--- OUTSIDE RECORDS SUMMARY | 2024-10-11 01:00 | XMS_ITS | Encounter Summary ---
Author Organization [facility] Health Address [address] [facility] [place] [address] Care Team Providers Care Accounting System Expert Name Role Phone Antoni Arenas MD Primary Care Provider [phone] Encounter Details Date Type Department Care Team (Late st Contact Info) Description 05/10/2011 [facility] Outpatient Visit EXTERNAL NON-[facility] DEPT Leonard Horne MD [address] [place], [place] [id number] Social History Tobacco Use Types Packs/Day Years Used Date Smoking Tobacco: Never Smokeless Tobacco: Never Alcohol Use Standard Drinks/Week Comments Yes 0 (1 standard drink = 0.6 oz pur e alcohol) social/rare Comments Unknown Sex and Gender Information Value Date Recorded Sex Assigned at Not on file 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
--- OUTSIDE RECORDS SUMMARY | 2024-10-11 01:00 | XMS_ITS | Clinical Summary ---
Author Organization [facility] Address [address] [facility] [address] Care Team Providers Care Fairground Operator Name Role Phone Antoni Arenas MD Primary Care Provider [phone] Source Comments [facility] and Associated Physician Practices is amultiple site organization consisting of ambulatory clinics and hospital sitesin [place], [place], [place] and [place]. This disclosure is being madepursuant to the Care Everywhere program and may not contain all information available regarding this patient. Last updated 18.[facility] [employer] Allergies Active Allergy Reactions Criticality Noted Date [...] on file Legal Sex Female 12:17 PM INSULATION HELPER Gender Identity Not on file Sexual Orientation Not on file Last Filed Vital Signs Vital Sign Reading Time Taken Comments Blood Pressure 110/77 05/02/2014 9:35 AM INSULATION HELPER Pulse 84 05/02/2014 9:35 AM INSULATION HELPER Temperature 36.3 C (97.3 F) 11/08/2011 9:43 AM CDT Respiratory Rate 16 11/08/2011 9:43 AM CDT Oxygen Saturation 98% 05/02/2014 9:35 AM INSULATION HELPER Inhaled Oxygen Concentration - - Weight 67.1 kg (148 lb) 05/02/2014 9:35 AM INSULATION HELPER Height 157.5 cm (5' 2) 05/02/2014 9:35 AM INSULATION HELPER Body Mass Index 27.07 05/02/2014 9:35 AM INSULATION HELPER Plan of Treatment Health Maintenance Due Date [...] patient's age to complete this topic Insurance [facility] Advance Directives * FULL RESUSCITATION (Latest Code Status on File) Date Activated Date Inactivated Comments 05/11/2011 12:11 PM 05/13/2011 1:15 AM Care Teams Fairground Operator Relationship Specialty Start Date End Date Antoni Arenas MD [address] [place] [phone] PCP - General 01/28/11
[2024-10-11] MEDS: LACTATED RINGERS 1,000 ML 30 ML IV CONT ×2 (06:50→13:42)
[2024-10-11] MEDS: SCOPOLAMINE 1 MG PATCH 1 PATCH TRANSDERM (07:05)
--- NOTE | 2024-10-11 07:26 | P.PNAN_ITS ---
Anes - Initial Pre Proc Eval Procedure: Operation Date: 10/11/24 07:30 Proposed Procedures p Bilateral Breast Mastopexy, - Parveen Brizuela MD s Bilateral Brachioplasty, - Parveen Brizuela MD s Mini Tummy Tuck with Liposuction - Parveen Brizuela MD Date/Time: 10/11/24 07:26 Surgeon: Parveen Brizuela MD Pre Op Diagnosis: skin laxity, breast ptosis Patient Data Age: 54 Gender: F Height: 1.57 m Weight: 65.4 kg Last Vital Signs Temp 98.6 F 10/11/24 06:45 Pulse 72 10/11/24 06:45 Resp 18 10/11/24 06:45 BP 108/64 10/11/24 06:45 Pulse Ox 100 10/11/24 06:45 O2 Del Method Room Air 10/11/24 06:45 Allergies Allergy/AdvReac Type Severity Reaction Status Date / Time No Known Allergies Allergy Mild Verified 10/11/24 07:01 Home Medications ?Medication ?Instructions ?Recorded ?Confirmed ?Type No Home Medications 10/11/24 10/11/24 History Laboratory Tests 10/11/24 06:39 Cotinine Pending Patient hx anesthesia problems: post op nausea/vomiting Family hx anesthesia problems: none Results Review: All pre-operative results and documents have been reviewed as part of the pre- operative evaluation. [facility] Surgical History Surgical History History of History of hernia repair History of removal of ovarian cyst left side History of weight loss surgery Social History Social History Smoking status: Never smoker Alcohol intake: never Substance use: never Substance use type: does not use Living arrangements: with family Gender identity (if verbalized by the patient): Female Sexual Orientation (if Verbalized by the Patient): Straight or Heterosexual Spiritual care concerns: No Anes - Eval Final PreProcedure Day of Procedure 10/11/24 07:26 Patient weight: normal Heart: regular rate and rhythm Lungs: clear to auscultation Airway: Mallampati scale class II Neurological: alert and oriented Last oral intake: >/= 8 hours ASA classification: II Emergent: no Anesthetic plan: proceed Anesthesia type and monitoring: general ETT and standard monitoring Results Review: All pre-operative results and documents have been reviewed as part of the pre- operative evaluation. Informed Consent: The patient's anesthetic plan and its attendant risks and benefits were discussed with the patient/family/POA. Questions were solicited and answers provided to the satisfaction of the patient/family/POA.
[2024-10-11 07:37] LABS: Urine Cotinine NEGATIVE
--- NOTE | 2024-10-11 07:37 | WPDHPUPDATE1 ---
History and Physical Update Update Date/Time: 10/11/24 07:37 History and Physical has been reviewed, including an updated exam of the patient. There are NO changes in the patient's condition. Will proceed with bilateral mastopexy, bilateral brachioplasty, mini abdominoplasty with suction lipectomy. Risks, benefits, and alternatives have been discussed and questions answered. Patient agrees to proceed with procedure.
--- NOTE | 2024-10-11 07:41 | W.PM.PROC2 ---
Procedure Note - Detailed Date of Procedure 10/11/24 Pre-op Diagnosis skin laxity, breast ptosis Post-op Diagnosis Same Procedure Performed 1. Bilateral brachioplasty 2. Bilateral mastopexy 3. Mini abdominoplasty (no muscle repair) with suction lipectomy Surgeon Parveen Brizuela MD Anesthesia General Indications Again today we had a lengthy discussion regarding her preoperative hemoglobin and how that can effect her outcome, complications, and risks for blood transfusion. She states her hemoglobin is always low it's unlikely she would ever be a better candidate to proceed. Discussed all her options as well as risks, benefits, alternatives in extensive detail making sure she was making an appropriate informed choice. She would like to proceed and accepts these risks and is able to clearly repeat them back. Findings Lipoaspirate: 2,500 cc Tissue removed: 279.6 grams Description of Procedure They are here today for the above procedures. Previously and again today the risks, benefits, alternatives were discussed in extensive detail. I wanted them to be very realistic about the risks involved as well as expectations. We discussed aftercare and what to monitor for. I was very upfront about the risks of wound breakdown leading to loss of skin, open wounds, and need for additional procedures with permanent abdominal deformity. We discussed DVT/PE risks and management. Made sure answered all of their questions to their satisfaction today and consent was obtained. They were marked in the preoperative holding area with their verification. The patient was taken to the operating room. Anesthesia was provided by anesthesiology. A Rincon catheter was started. Posterior Placed prone on the operating room table with care taken to protect from injury. Prepped and draped in a standard sterile fashion. A surgical time-out was taken. Stab incisions were made and tumescent solution was infiltrated. Once adequate time was allowed for hemostasis a 5mm basket and 4mm hamilton cannula were utilized to complete suction lipectomy based on S.A.F.E. technique in multiple planes and passes. Suction lipectomy continued to result based on pre-operative planning, intra-operative observation, and rolling pinch test which were in full agreement. Patient was then placed supine with care taken to protect from injury. Brachioplasty Stab incisions were made and I tumesced with a tumescent solution. Once adequate time for hemostasis suction lipectomy was with a 4 mm basket cannula based on S.A.F.E. technique. This was completed based on preoperative planning, intraoperative observation, and rolling pinch test which was in full agreement. I completely de-fatted the planned resection area and a strip avulsion technique was completed. Starting proximal to distal a 10 blade was used to excise the intervening skin and this was tacked as we proceed to ensure good closure. This was closed using a 2-0 Quill, 3-0 strata fix, running subcuticular 4-0 Monocryl, and tissue glue. Dressings were placed. Mastopexy Eleven blade was utilized to make a stab incision and infiltrated with low volume tumescent solution. I tailor tacked the breast into position. Placed her in a sitting position. Verified the nipple-areolar location based on preoperative planning as well as intraoperative observations and measurements in full agreement. She was placed supine. I de-epithelialized the pedicle. I closed along the IMF with 2-0 Stratafix. Along the vertical with 2-0 PDS. I closed around the Saturnino with 3-0 strata fix. 3-0 Monocryl along the vertical. 3-0 Stratafix along the IMF. I finally closed everything with running subcuticular 4-0 Monocryl and tissue glue. Mini abdominoplasty I placed the patient in a flexed position to verify the upper and lower markings would reach. I then placed supine. A thorough abdominal examination was completed. Stab incisions were made and tumescent solution was infiltrated. Once adequate time was allowed for hemostasis a 5mm basket and 4mm hamilton cannula were utilized to complete suction lipectomy based on S.A.F.E. technique in multiple planes and passes. Suction lipectomy continued to result based on pre-operative planning, intra-operative observation, and rolling pinch test which were in full agreement. A 10 blade was used to make the lower incision. I continued dissection down to the level of fascia. Elevated just what was necessary for skin excision. I then again flexed the bed to verify the upper skin flap would reach the lower markings without tension. Once verified I placed her supine once again and a 10 blade used to make the upper incision. A 2 mm blunt cannula with 0.5% bupivacaine was injected deep to the fascia bilaterally. The patient was flexed and starting from superior to inferior began plication using 2-0 Vicryl to obliterate all space in a standard progressive tension fashion. I trimmed any excess skin of the upper flap making sure this was a tension-free closure. I then approximated using a 3 point suture with 2-0 Vicryl followed by 2-0 PDO Stratafix, 3-0 Stratafix ,running subcuticular 4-0 Monocryl, and tissue glue. Fluffs, wraps, surgical bra, and an abdominal binder were placed. The patient was transferred to the bed in a flexed position. Awoken and taken to the PACU without difficulty. All instrument and sponge counts were correct at the end of the case. Estimated Blood Loss 70 Drains No Packing No Pathology None sent Complications No immediate complications Condition Stable Disposition PACU
[2024-10-11] MEDS: LACTATED RINGERS IRRIG 1,000 ML, LIDOCAINE 1% LOCAL INJ 50 ML, EPINEPHrine HCL INJ 1 MG... INFILTRATE (07:49)
[2024-10-11] MEDS: TRANEXAMIC ACID 1,000MG/ISO100 1,000 MG/100 ML BAG 200 MG IVPB (07:49)
[2024-10-11] MEDS: ceFAZolin 2 GM/D5W 50 ML 2 GM/50 ML BAG IVPB (07:49)
[2024-10-11] MEDS: fentaNYL CITRATE INJ (*CRX) 100 MCG/2 ML VIAL 25 MCG IV PUSH ×4 (14:22→15:07)
[2024-10-11] MEDS: ONDANSETRON INJ 4 MG/2 ML VIAL IV PUSH (15:45)
== END 2024-10-11 16:46 | disposition home or self-care (01) ==
PROVIDERS: PCP Internal Medicine; Visit Provider Surgery Plastic and Reconstructive Surgery
PROC: (CPT 19316; principal; 2024-10-11 07:30)
PROC: (CPT 15836; 2024-10-11 07:30)
PROC: (CPT 19316; 2024-10-11 07:30)
DX: Z41.1 Encounter for cosmetic surgery (principal); L57.4 Cutis laxa senilis; N64.81 Ptosis of breast; Z98.890 Other specified postprocedural states
CPT/HCPCS: 19316; 15878; 15836; 15830; 15877; 80307; A9270; J0171; J0690; J1100; J1171; J1580; J2003; J2004; J2250; J2405; J2704; J3010; J7120